=== PATIENT | male | born 1990 | race American Indian/Alaskan Native ===

== ENCOUNTER 2021-03-31 09:06 | Emergency (ER) | payer BC ==
[2021-03-31 09:40] VITALS: BP 118/76
--- NOTE | 2021-03-31 10:40 | Emergency Department Report ---
ED General Adult HPI - General Chief complaint: Rectal Pain Stated complaint: PROLAPSED RECTUM Time Seen by Provider: 03/31/21 10:24 Source: patient Mode of arrival: Ambulatory Limitations: No Limitations - History of Present Illness Initial comments: Patient presented secondary to a possible prolapsed rectum. He started noticing rectal pain and perianal pain. He felt a bulge in that area. He states that he has tried to reduce it, but it will not reduce. He has never had a problem with rectal prolapse before. This happened over the last day or 2. There is no history of rectal trauma. He does state that he has been constipated and having to bear down quite a bit lately. There is no fevers or chills. Has no cough or congestion. Has not noticed any blood in the stool. Pain is a constant aching and burning pain in the perianal area. - Related Data Previous Rx's Medication Instructions Recorded Last Taken Type Docusate Sodium [Colace] 100 mg PO BID #20 capsule 03/31/21 Unknown Rx Hydrocortisone [Procto-Med Hc] 30 gm TP BID #1 crm.pe.della 03/31/21 Unknown Rx Allergies Allergy/AdvReac Type Severity Reaction Status Date / Time No Known Allergies Allergy Verified 03/31/21 09:37 ED Review of Systems ROS: Stated complaint: PROLAPSED RECTUM Other details as noted in HPI Comment: All other systems reviewed and negative Constitutional: denies: fever Eyes: denies: eye pain ENT: denies: throat pain Respiratory: denies: cough Cardiovascular: denies: chest pain Endocrine: denies: unexplained weight loss Gastrointestinal: as per HPI Genitourinary: denies: dysuria Musculoskeletal: denies: back pain Skin: denies: rash Neurological: denies: headache Hematological/Lymphatic: denies: easy bruising ED Past Medical Hx - Past Medical History Previous Medical History?: Yes Hx Arthritis: Yes - Family History Family history: no significant - Medications Home Medications: Home Medications Medication Instructions Recorded Confirmed Last Taken Type Docusate Sodium [Colace] 100 mg PO BID #20 capsule 03/31/21 Unknown Rx Hydrocortisone [Procto-Med Hc] 30 gm TP BID #1 crm.pe.della 03/31/21 Unknown Rx ED Physical Exam - General Limitations: No Limitations, Other (Pulse ox was noted to normal) General appearance: alert, in no apparent distress - Head Head exam: Present: atraumatic, normocephalic, normal inspection - Eye Eye exam: Present: normal appearance, EOMI - ENT ENT exam: Present: normal exam, normal external ear exam - Neck Neck exam: Present: normal inspection. Absent: meningismus - Respiratory Respiratory exam: Present: normal lung sounds bilaterally. Absent: respiratory distress - Cardiovascular Cardiovascular Exam: Present: regular rate, normal rhythm - GI/Abdominal GI/Abdominal exam: Present: soft. Absent: tenderness - Rectal Rectal exam: Present: other (Patient has a partially thrombosed internal hemorrhoid that seems to be extending outside of the anus. There is no external hemorrhoid noted. There is localized tenderness. There is no fluctuance or erythema.) - Extremities Exam Extremities exam: Present: normal capillary refill. Absent: calf tenderness - Back Exam Back exam: Absent: CVA tenderness (R), CVA tenderness (L) - Neurological Exam Neurological exam: Present: alert, oriented X3, CN II-XII intact, normal gait - Psychiatric Psychiatric exam: Present: normal affect, normal mood - Skin Skin exam: Present: warm, dry ED Course Vital Signs 03/31/21 09:37 Pulse Rate 72 Respiratory 16 Rate Blood Pressure 118/76 [Left] O2 Sat by Pulse 97 Oximetry - Reevaluation(s) Reevaluation #1: 03/31/21 19:25 Patient was discharged ED Medical Decision Making - Medical Decision Making Patient presents with perianal pain and has a partially thrombosed hemorrhoid that seems to be internal. There is no evidence of trauma. He has no evidence of secondary abscess or infection. I really do not appreciate any type of a prolapse of the rectum itself. We have discussed bowel habits. We have discussed high-fiber diet and constipation. Patient can follow-up with her regular physician. He is comfortable with current plan. Critical care attestation.: If time is entered above; I have spent that time in minutes in the direct care of this critically ill patient, excluding procedure time. ED Disposition Clinical Impression: Internal hemorrhoid Disposition: 01 HOME / SELF CARE / HOMELESS Is pt being admited?: No Condition: Stable Instructions: Hemorrhoids, [id number], Nonsurgical Procedures for Hemorrhoids, Care After Additional Instructions: Use sits baths. Have a high fiber diet. Drink plenty of water. Return for problems. Prescriptions: Docusate Sodium [Colace] 100 mg PO BID #20 capsule Hydrocortisone [Procto-Med Hc] 30 gm TP BID #1 crm.pe.della Referrals: PRIMARY CARE, [Primary Care Provider] - 3-5 Days
== END 2021-03-31 10:59 | disposition home or self-care (01) ==
LOC: ED 09:06
DX: K64.9 Unspecified hemorrhoids (principal); M19.90 Unspecified osteoarthritis, unspecified site; Z79.899 Other long term (current) drug therapy
CPT/HCPCS: 99282

== ENCOUNTER 2021-09-23 11:47 | Outpatient (CLI) | payer BC ==
--- NOTE | 2021-09-23 14:29 | XRay Report ---
LEFT WRIST 4 VIEW(S) INDICATION / CLINICAL INFORMATION: M25.532 PAIN IN LEFT WRIST COMPARISON: None available. FINDINGS: BONES / JOINT(S): No acute fracture or subluxation. No significant arthritis. SOFT TISSUES: No significant abnormality. ADDITIONAL FINDINGS: None. IMPRESSION: 1. No acute findings. Signer Name: Jerson Tabares II, MD Signed: 09/23/2021 2:25 PM Workstation Name: [id number]
== END 2021-09-23 11:48 | disposition home or self-care (01) ==
LOC: XRAY 11:47
PROVIDERS: ATTEND Internal Medicine
DX: M25.532 Pain in left wrist (principal)